=== PATIENT | male | born 2005 | race Caucasian/White ===

== ENCOUNTER 2023-09-30 11:22 | Emergency (ER) | payer OTHER ==
[~2023-09-30] VITALS: Ht 182.9 cm; Wt 97.0 kg
[2023-09-30 12:24] LABS: HEMATOCRIT 44.8 % (42.0-52.0); HEMOGLOBIN 15.4 g/dl (13.5-17.5); MEAN CORPUSCULAR HGB CONC 34.4 g/dl (32.0-36.5); MEAN CORPUSCULAR VOLUME 87.2 fl (80.0-96.0); PLATELET COUNT, AUTOMATED 285 10^3/uL (150-450); RED BLOOD COUNT 5.14 10^6/uL (4.30-6.10); WHITE BLOOD COUNT 10.3 10^3/uL (4.0-10.0)
[2023-09-30 12:49] LABS: ETHYL ALCOHOL (ETHANOL) < 0.003 % (0.000-0.010)
[2023-09-30 12:51] LABS: ALBUMIN 4.5 G/DL (3.2-5.2); ALKALINE PHOSPHATASE 144 U/L (46-116); ALT/SGPT 22 U/L (7.0-40); AST/SGOT 22 U/L (<34); BILIRUBIN,DIRECT 0.2 MG/DL (<0.4); BILIRUBIN,TOTAL 0.5 MG/DL (0.3-1.2); BLOOD UREA NITROGEN 15 MG/DL (9-23); CALCIUM LEVEL 10.1 MG/DL (8.5-10.1); CARBON DIOXIDE LEVEL 28 MMOL/L (20-31); CHLORIDE LEVEL 107 MMOL/L (98-107); CREATININE FOR GFR 0.82 MG/DL (0.70-1.30); GLUCOSE, FASTING 87 MG/DL (60-100); POTASSIUM SERUM 4.3 MMOL/L (3.5-5.1); SALICYLATE LEVEL < 3.0 MG/DL (<30); SODIUM LEVEL 140 MMOL/L (136-145); TOTAL PROTEIN 7.6 G/DL (5.7-8.2)
[2023-09-30] MEDS ORDERED: HOME MED LIST COMPLETE! XX SCH (12:55)
[2023-09-30 12:59] LABS: BARBITURATES URINE NEGATIVE (NEGATIVE); COCAINE METABOLITE URINE NEGATIVE (NEGATIVE); METHADONE URINE NEGATIVE (NEGATIVE); OPIATES URINE NEGATIVE (NEGATIVE)
[2023-09-30 13:00] LABS: AMPHETAMINES LEVEL URINE NEGATIVE (NEGATIVE); BENZODIAZEPINES URINE NEGATIVE (NEGATIVE); CANNABINOIDS URINE NEGATIVE (NEGATIVE); PHENCYCLIDINE URINE NEGATIVE (NEGATIVE)
[2023-09-30 14:50] VITALS: BP 124/79; TEMP 97.6; O2SAT 98
== END 2023-09-30 15:13 | disposition home or self-care (01) ==
LOC: M ED 11:22
DX: F41.9 Anxiety disorder, unspecified (principal); F90.9 Attention-deficit hyperactivity disorder, unspecified type

== ENCOUNTER 2023-12-12 11:28 | Inpatient (IN) | payer OTHER ==
[~2023-12-12] VITALS: Ht 182.9 cm; Wt 86.2 kg
[2023-12-12 13:11] LABS: HEMATOCRIT 43.8 % (42.0-52.0); MEAN CORPUSCULAR HEMOGLOBIN 29.3 pg (27.0-33.0); MEAN CORPUSCULAR HGB CONC 34.2 g/dl (32.0-36.5); MEAN CORPUSCULAR VOLUME 85.5 fl (80.0-96.0); PLATELET COUNT, AUTOMATED 273 10^3/uL (150-450); RED BLOOD COUNT 5.12 10^6/uL (4.30-6.10); WHITE BLOOD COUNT 7.2 10^3/uL (4.0-10.0)
[2023-12-12 13:30] LABS: AMPHETAMINES LEVEL URINE NEGATIVE (NEGATIVE); BARBITURATES URINE NEGATIVE (NEGATIVE); BENZODIAZEPINES URINE NEGATIVE (NEGATIVE); CANNABINOIDS URINE NEGATIVE (NEGATIVE); COCAINE METABOLITE URINE NEGATIVE (NEGATIVE); METHADONE URINE NEGATIVE (NEGATIVE); OPIATES URINE NEGATIVE (NEGATIVE); PHENCYCLIDINE URINE NEGATIVE (NEGATIVE)
[2023-12-12 13:33] LABS: ETHYL ALCOHOL (ETHANOL) 0.004 % (0.000-0.010)
[2023-12-12 13:35] LABS: ALBUMIN 4.4 G/DL (3.2-5.2); ALKALINE PHOSPHATASE 129 U/L (46-116); ALT/SGPT 16 U/L (7.0-40); AST/SGOT 15 U/L (<34); BILIRUBIN,DIRECT 0.3 MG/DL (<0.4); BILIRUBIN,TOTAL 0.7 MG/DL (0.3-1.2); BLOOD UREA NITROGEN 9 MG/DL (9-23); CALCIUM LEVEL 10.4 MG/DL (8.5-10.1); CARBON DIOXIDE LEVEL 28 MMOL/L (20-31); CHLORIDE LEVEL 108 MMOL/L (98-107); CREATININE FOR GFR 0.78 MG/DL (0.70-1.30); GLUCOSE, FASTING 86 MG/DL (60-100); POTASSIUM SERUM 4.6 MMOL/L (3.5-5.1); SALICYLATE LEVEL < 3.0 MG/DL (<30); SODIUM LEVEL 140 MMOL/L (136-145); TOTAL PROTEIN 7.2 G/DL (5.7-8.2)
[2023-12-12 13:37] LABS: THYROID STIMULATING HORMONE 1.336 uIU/ML (0.48-4.17)
[2023-12-12] MEDS ORDERED: ADDE10TA PO (14:30)
[2023-12-12] MEDS ORDERED: HOME MED LIST COMPLETE! XX SCH ×2 (14:55)
[2023-12-12] MEDS ORDERED: IBUPROFEN 400MG TAB PO PRN (16:15)
[2023-12-12] MEDS ORDERED: traZODone 50 MG TAB PO PRN (16:15)
[2023-12-12] MEDS ORDERED: OLANZapine ORAL DISINTEGRATING TAB 5MG PO PRN (16:15)
[2023-12-12] MEDS ORDERED: ACETAMINOPHEN 325 MG TAB PO PRN (16:15)
[2023-12-12] MEDS ORDERED: diphenhydrAMINE 25MG CAP PO PRN (16:15)
[2023-12-12] MEDS ORDERED: NICOTINE 21MG/24HR 1 EA TRANSDERMAL TD PRN (16:15)
[2023-12-12 17:24] VITALS: BP 104/55; TEMP 98; O2SAT 99
[2023-12-13 06:10] VITALS: BP 129/71; TEMP 97.8; O2SAT 100
== END 2023-12-13 11:58 | disposition home or self-care (01) | DRG 880 ==
LOC: M ED 11:28 → EDBD 11:28 → M ED INP 16:14 → M PSY 16:54
PROVIDERS: ADMIT Psychiatry & Neurology Psychiatry; ATTEND Psychiatry & Neurology Psychiatry
DX: F41.9 Anxiety disorder, unspecified (principal); F90.9 Attention-deficit hyperactivity disorder, unspecified type; F17.200 Nicotine dependence, unspecified, uncomplicated; Z79.899 Other long term (current) drug therapy; Z91.52 Personal history of nonsuicidal self-harm

== ENCOUNTER 2023-12-31 21:52 | Emergency (ER) | payer OTHER ==
[~2023-12-31] VITALS: Ht 182.9 cm; Wt 86.8 kg
[~2023-12-31 21:52] MED LIST: ADDE10TA PO
[2023-12-31 21:58] VITALS: BP 134/75; TEMP 98.1; O2SAT 99
== END 2024-01-01 00:02 | disposition home or self-care (01) ==
LOC: M ED 21:52
DX: F43.0 Acute stress reaction (principal); R45.88 Nonsuicidal self-harm; F41.9 Anxiety disorder, unspecified; F90.9 Attention-deficit hyperactivity disorder, unspecified type; Z79.899 Other long term (current) drug therapy

== ENCOUNTER 2024-03-24 17:39 | Emergency (ER) | payer OTHER ==
[~2024-03-24] VITALS: Ht 182.9 cm; Wt 89.1 kg
[2024-03-24 17:43] VITALS: BP 138/87; TEMP 97.3; O2SAT 100
[2024-03-24] MEDS ORDERED: ARIP1TAB4 (17:46)
== END 2024-03-24 23:56 | disposition home or self-care (01) ==
LOC: M ED 17:39
DX: F43.0 Acute stress reaction (principal); R45.88 Nonsuicidal self-harm; F31.9 Bipolar disorder, unspecified; F90.9 Attention-deficit hyperactivity disorder, unspecified type; F17.290 Nicotine dependence, other tobacco product, uncomplicated; Z79.899 Other long term (current) drug therapy